=== PATIENT | female | born 1990 | race Caucasian/White ===

== ENCOUNTER 2018-11-23 05:28 | Inpatient (IN) | payer OTHER ==
[2018-11-23 06:09] LABS: APPEARANCE,URINE CLOUDY; BILIRUBIN,URINE NEGATIVE (NEGATIVE); COLOR,URINE YELLOW; GLUCOSE, URINE NEGATIVE (NEGATIVE); KETONES,URINE NEGATIVE (NEGATIVE); LEUKOCYTE ESTERASE,URINE MODERATE (NEGATIVE); NITRITE,URINE NEGATIVE (NEGATIVE); PROTEIN,URINE NEGATIVE (NEGATIVE); URINE SPECIFIC GRAVITY 1.025; UROBILINOGEN,URINE NEGATIVE mg/dL (<2.0)
--- NOTE | 2018-11-23 06:18 | Non Stress Test Report ---
Non Stress Test Datetime Report Generated by CPN: 11/23/2018 06:18 DEMOGRAPHIC Test Number: 1 EGA NST: 40.2 INDICATION Indication for Study: Ordered by Provider URINE RESULTS Urine Protein, NST: Negative Urine Ketones - NST: Negative Urine Glucose - NST: Negative Urine Blood - NST: Negative MONITORING Monitor Explained: Monitor Explained; Test Explained; Patient Verbalized Understanding Time on Monitor: 11/23/2018 05:44 Time off Monitor: 11/23/2018 06:13 NST Duration: 29 NST INTERVENTIONS NST Interventions: PO Hydration; Reposition Patient Physician Notified NST: Dr. Solomon BABY A: [id number] BABY A Movement : Present Contraction Frequency : 4-5 FHR Baseline : 145 Accelerations : 15X15 Decelerations : None Variability : Moderate 6-25bpm NST Review: Meets Criteria for Reactive NST NST Review and Verified By : GALLO Thorne NST Results: Reactive NST REPORT Report Trigger: Send Report
[2018-11-23 06:27] LABS: URINE AMPHETAMINES SCREEN NEGATIVE; URINE BARBITURATES SCREEN NEGATIVE; URINE BENZODIAZEPINES SCREEN NEGATIVE; URINE COCAINE SCREEN NEGATIVE; URINE MARIJUANA (THC) SCREEN NEGATIVE; URINE METHADONE SCREEN NEGATIVE; URINE PHENCYCLIDINE SCREEN NEGATIVE
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
[2018-11-23] MEDS ORDERED: OXYTOCIN/NORMAL SALINE 20 UNIT/1,000 ML RTUINJ IV PRN ×2 (07:33→16:23)
[2018-11-23] MEDS ORDERED: RINGERS SOLUTION,LACTATED 300 ML IV ONE (07:33)
[2018-11-23] MEDS ORDERED: DINOPROSTONE 10 MG VAGINAL INSERT.SR PV PRN (07:33)
[2018-11-23] MEDS ORDERED: RINGERS SOLUTION,LACTATED 1,000 ML IV PRN ×2 (07:33→16:23)
[2018-11-23] MEDS: RINGERS SOLUTION,LACTATED 1,000 ML IV PRN ×2 (08:15→21:30)
[2018-11-23] MEDS ORDERED: MISOPROSTOL 0.2 MG TABLET ONE (08:21)
[2018-11-23] MEDS ORDERED: OXYTOCIN/NORMAL SALINE 20 UNIT/1,000 ML RTUINJ ONE ×2 (08:21→15:01)
[2018-11-23] MEDS ORDERED: LIDOCAINE 1% INJ-PF (10 MG/ML) 30 ML SDV ONE (08:21)
[2018-11-23 08:22] LABS: HEMATOCRIT 34.9 % (36.0-47.0); HEMOGLOBIN 11.9 g/dL (12.0-15.5); MEAN CORPUSCULAR HEMOGLOBIN 30.4 pg (27.0-33.4); MEAN CORPUSCULAR HGB CONC 34.2 g/dL (32.0-36.0); MEAN CORPUSCULAR VOLUME 89 fl (80-97); PLATELET COUNT 296 10^3/uL (150-450); RED BLOOD COUNT 3.93 10^6/uL (3.72-5.28); RED CELL DISTRIBUTION WIDTH 13.8 % (11.5-14.0); WHITE BLOOD COUNT 10.5 10^3/uL (4.0-10.5)
[2018-11-23] MEDS ORDERED: PHENYLEPHRINE HCL INJ/PF 10 MG/1 ML SDV ONE (10:17)
[2018-11-23] MEDS ORDERED: EPHEDRINE SULFATE INJ 50 MG/1 ML AMPULE ONE (10:18)
[2018-11-23] MEDS ORDERED: FENTANYL/BUPIVACAINE/NS/PF 300 MCG/150 ML RTUINJ EPI ONE (10:18)
[2018-11-23] MEDS ORDERED: FENTANYL CITRATE INJ/PF 100 MCG/2 ML AMPUL ONE ×2 (10:18→15:01)
[2018-11-23] MEDS ORDERED: BUPIVACAINE HCL 0.25 % INJ/PF (2.5 MG/1 ML) 30 ML VIAL ONE (10:19)
[2018-11-23] MEDS ORDERED: LIDOCAINE 1.5%/EPINEPHRINE INJ-PF 30 ML SDV ONE (10:20)
[2018-11-23] MEDS ORDERED: CLINDAMYCIN 900 MG/D5W RTU 900 MG/50 ML RTUPB IV ONE (14:57)
[2018-11-23] MEDS ORDERED: CITRIC ACID/SODIUM CITRATE ORAL SOLN 15 ML UDCUP ONE (14:58)
--- NOTE | 2018-11-23 14:59 | L&D Progress Notes ---
PROGRESS NOTES Datetime Report Generated by CPN: 11/23/2018 14:59 PROGRESS NOTE Impression: Non-reassuring Heart Rate Plan: Deliver- Section Informed Consent Obtained: Section Delivery Vital Signs : Reviewed Comment: Pt having repetitive variable and late decels. Pit off, O2 on, fluid bolus given and numerous position changes employed without resolution. Have been monitoring closely for approx 20 min. Pt is nulliparous and is 7 cm. Decision to go to the OR for an Urgent LTCS has been made. Pt is agreeable to this plan. VAGINAL EXAM Dilatation: 4 Effacement: 80 Station: -1 LAST VAGINAL EXAM-NURSING Dilitation: 7.0 Dilitation: 6.0 Dilitation: 6.0 Dilitation: 3.5 Dilitation: 2.5 Effacement: 90 Effacement: 90 Effacement: 90 Effacement: 80 Effacement: 50 Station: -2 Station: -1 Station: -1 Station: -1 Station: -2 Contractions: IAIN APPLIED MEMBRANES Pooling: Negative Membranes: Intact FETUS A FHR - Baseline: 150s Monitoring: Internal Scalp Electrode Variability: Moderate 6-25bpm Accelerations: 10X10 Decelerations: Late; Variable; Prolonged FHR Category: Category II : 40.2 : 40.2 Estimated Weight (gm): 3500 Presentation: Vertex SIGNATURE SIGNATURE: [id number];[id number];[id number] SIGNATURE: [id number];14,[id number] SIGNATURE: [id number] Signature: with User ID: [email or web address]
[2018-11-23] MEDS ORDERED: ONDANSETRON HCL INJ/PF 4 MG/2 ML SDV ONE (15:01)
[2018-11-23] MEDS ORDERED: OXYTOCIN 10 UNIT/ML VIAL ONE (15:01)
[2018-11-23] MEDS ORDERED: MIDAZOLAM 2 MG/2 ML INJ ONE (15:01)
[2018-11-23] MEDS ORDERED: BUPIVACAINE HCL/DEX-WATER/PF 15 MG/2 ML AMPULE ONE (15:08)
--- NOTE | 2018-11-23 16:16 | PDOC DELIVERY SUMMARY ---
Delivery Summary - Maternal Number of Living Children: 0 ALAN: 11/21/18 Gestational Age: 40.2 Ruptured Membranes: AROM Fluids: Clear - Delivery Labor: Augmentation Presentation: Vertex Uterine Contraction Monitoring: Internal Pattern: Late Decels, Prolonged Decels Support Person Present: Yes Location: OR : Emergency Placenta: Within Normal Limits Placenta Description: Normal-appearing Number of Vessels (Cord): 3 Nuchal Cord: No Delivery of Placenta Date: 11/23/18 Estimated Blood Loss: 500 ml - Medications Type of Anesthesia:: Spinal - Delivery Personnel MD: WALLY CANO
[2018-11-23] MEDS ORDERED: DIPH/PERTUSS(ACELL)/TETANUS VAC/PF 0.5 ML SYR (>=10YO) IM PRN (16:23)
[2018-11-23] MEDS ORDERED: HYDROMORPHONE HCL INJ/PF 2 MG/ML AMPULE IV PRN (16:23)
[2018-11-23] MEDS ORDERED: PROMETHAZINE HCL INJ 25 MG/1 ML VIAL IV PRN (16:23)
[2018-11-23] MEDS ORDERED: OXYCODONE-ACETAMINOPHEN 5-325 MG TABLET PO PRN (16:23)
[2018-11-23] MEDS ORDERED: SIMETHICONE 80 MG TAB.CHEW PO PRN (16:23)
[2018-11-23] MEDS ORDERED: ACETAMINOPHEN 325 MG TABLET PO PRN (16:23)
--- NOTE | 2018-11-23 16:23 | Operative Report ---
Operative Report DATE OF SURGERY: 11/23/18 PREOPERATIVE DIAGNOSIS: 1. Intrauterine at 40-2/7 weeks. 2. Catego ry 2-3 heart tones. 3. GBS negative. 4. Rh+. 5. Rubella immune POSTOPERATIVE DIAGNOSIS: Same OPERATION: Urgent primary low transverse section SURGEON: WALLY TAYLOR ANESTHESIA: Spinal TISSUE REMOVED OR ALTERED: Placenta COMPLICATIONS: None ESTIMATED BLOOD LOSS: 500 ml INTRAOPERATIVE FINDINGS: Male fetus in a cephalic position; Apgars 7 at 1, 8 at 5; Normal uterus, bilateral tubes and ovaries PROCEDURE: The patient was taken to the operating room where spinal anesthesia was obtained and found to be adequate. She was then prepped and draped in the normal sterile fashion and placed in the dorsal supine position with a leftward tilt. A Pfannenstiel skin incision was then made and carried through to the underlying layers of the fascia with the scalpel. The fascia was incised in the midline and the incision extended laterally with the Mandel scissors. The superior aspect of the fascial incision was then grasped with Alia clamps jennifer vated and the underlying rectus muscles dissected off both bluntly and sharply. Attention was then turned to the inferior aspect of the fascial incision which in a similar fashion was grasped, tented up with Alia clamps, and the rectus muscles dissected off both bluntly and sharply. The rectus muscles were then in the midline and the peritoneum was identified and entered both sharply and bluntly. The peritoneal incision was then extended superiorly and inferiorly with good visualization of the bladder. The bladder blade was inserted and the vesicouterine peritoneum identified grasped with Austrian pickups and entered sharply with the Metzenbaum scissors. This incision was then extended laterally with the Metzenbaum scissors and a bladder flap created digitally. The bladder blade was then reinserted and the lower uterine segment incised in a transverse fashion with the scalpel. The uterine incision was then extended bluntly and with the bandage scissors. The bladder blade was removed and the infant's head was delivered from cephalic presentation atraumatically. The cord doubly clamped and cut. The infant was handed off to waiting pediatricians. The placenta was then delivered manually and the uterus exteriorized and cleared of all clots and debris. The uterine incision was then repaired with 0 Vicryl in a running locked fashion. 0-Chromic was used to obtain hemostasis via imbrication of the initial layer. The bladder flap was then repaired with 3-0 Vicryl in a running fashion. The uterus was returned to the patient's abdomen and Interceed was placed overlying the uterine incision, as well as a piece placed vertically on the anterior surface of the uterus, to prevent adhesions. The gutters were cleared of all clots and debris. All operative sites were noted to be hemostatic. The fascia was reapproximated with 0 Vicryl in a running fashion from each lateral edge to the midline. The subcutaneous fat layer was then closed in an interrupted fashion with 3-0 vicryl. The skin was closed with 4-0 Monocryl in a running, subcuticular fashion. The patient tolerated the procedure well. Sponge, lap, needle and instrument counts are correct x 2. 900 mg of clindamycin was given prior to skin incision. The patient was taken to the recovery area awake and in stable condition.
[2018-11-23] MEDS ORDERED: KETOROLAC TROMETHAMINE INJ/PF 30 MG/1 ML SDV ONE (17:00)
[2018-11-23] MEDS ORDERED: NALBUPHINE HCL INJ 10 MG/1 ML AMPULE ONE (17:00)
[2018-11-23] MEDS: OXYCODONE-ACETAMINOPHEN 5-325 MG TABLET PO PRN (21:27)
[2018-11-23] MEDS: DOCUSATE SODIUM 100 MG CAPSULE PO SCH (21:28)
[2018-11-23] MEDS: IBUPROFEN 800 MG TABLET PO SCH (21:28)
[2018-11-23] MEDS: KETOROLAC TROMETHAMINE INJ/PF 30 MG/1 ML SDV IV SCH (22:23)
[2018-11-24] MEDS: IBUPROFEN 800 MG TABLET PO SCH ×4 (00:40→18:02)
[2018-11-24] MEDS: OXYCODONE-ACETAMINOPHEN 5-325 MG TABLET PO PRN ×4 (04:56→21:52)
[2018-11-24] MEDS: KETOROLAC TROMETHAMINE INJ/PF 30 MG/1 ML SDV IV SCH (05:03)
[2018-11-24 06:16] LABS: HEMATOCRIT 28.8 % (36.0-47.0); HEMOGLOBIN 10.1 g/dL (12.0-15.5); MEAN CORPUSCULAR HEMOGLOBIN 31.2 pg (27.0-33.4); MEAN CORPUSCULAR VOLUME 89 fl (80-97); PLATELET COUNT 214 10^3/uL (150-450); RED BLOOD COUNT 3.23 10^6/uL (3.72-5.28); RED CELL DISTRIBUTION WIDTH 13.9 % (11.5-14.0); WHITE BLOOD COUNT 9.7 10^3/uL (4.0-10.5)
--- NOTE | 2018-11-24 09:47 | PDOC PROGRESS REPORT ---
Subjective-OB Progress Note for:: 11/24/18 Subjective: Pt doing well. No concerns. Reports light bleeding, reg diet and voiding well. No flatus yet. Physical Exam (OB) Vital Signs: Temp Pulse Resp BP Pulse Ox 98.6 F 95 16 129/54 H 98 11/24/18 07:34 11/24/18 07:34 11/24/18 07:34 11/24/18 07:34 11/24/18 07:34 Intake & Output 11/23/18 11/24/18 11/25/18 06:59 06:59 06:59 Intake Total 3900 Output Total 3100 Balance 800 Weight 82 kg - Dressing Removed: No - CD&I - Lochia Lochia Amount: Scant < 10 ml Lochia Color: Rubra/Red - Abdomen Description: Soft, Round Hernia Present: No Fundal Description: Firm, Midline Fundal Height: u/u - u/2 Objective-Diagnostic Laboratory: 11/24/18 05:56 11/24/18 11/24/18 05:56 05:56 WBC 9.7 RBC 3.23 L Hgb 10.1 L Hct 28.8 L MCV 89 MCH 31.2 MCHC 35.0 RDW 13.9 Plt Count 214 Blood Type Cancelled Assessment and Plan(PN) - Assessment and Plan (1) delivery delivered Is this a current diagnosis for this admission?: Yes (2) Non-reassuring status, delivered, current hospitalization Is this a current diagnosis for this admission?: Yes (3) Spontaneous onset of labor Is this a current diagnosis for this admission?: Yes - Time Spent with Patient Time with patient: Less than 15 minutes Medications reviewed and adjusted accordingly: Yes - Disposition Anticipated Discharge: Home Within: within 24 hours
[2018-11-24] MEDS: PRENATAL VITAMIN W DHA CAPSULE PO SCH (10:59)
[2018-11-24] MEDS: DOCUSATE SODIUM 100 MG CAPSULE PO SCH ×2 (10:59→18:02)
[2018-11-25] MEDS: IBUPROFEN 800 MG TABLET PO SCH ×3 (00:59→12:38)
[2018-11-25] MEDS: OXYCODONE-ACETAMINOPHEN 5-325 MG TABLET PO PRN (08:58)
[2018-11-25] MEDS: DOCUSATE SODIUM 100 MG CAPSULE PO SCH (09:01)
[2018-11-25] MEDS: PRENATAL VITAMIN W DHA CAPSULE PO SCH (09:02)
--- NOTE | 2018-11-25 09:40 | PDOC PROGRESS REPORT ---
Subjective-OB Progress Note for:: 11/25/18 Subjective: Ready for discharge. Physical Exam (OB) Vital Signs: Temp Pulse Resp BP Pulse Ox 98.2 F 91 20 125/79 98 11/25/18 07:47 11/25/18 07:47 11/25/18 07:47 11/25/18 07:47 11/25/18 07:47 Intake & Output 11/24/18 11/25/18 11/26/18 06:59 06:59 06:59 Intake Total 3900 500 Output Total 3100 Balance 800 500 - PIH/Pre-Eclampsia Headache: Absent Epigastric Pain: No Visual Changes: No - Dressing Removed: No - opsite Incision: Dressing - Lochia Lochia Amount: Small 10-25 ml Lochia Color: Rubra/Red - Abdomen Description: Soft, Round Hernia Present: No Bowel Sounds: Normoactive Flatus Presence: Present Stool: No Fundal Description: Firm, Midline Fundal Height: u/u - u/2 Objective-Diagnostic Laboratory: 11/24/18 05:56 Assessment and Plan(PN) - Time Spent with Patient Medications reviewed and adjusted accordingly: Yes - Disposition Anticipated Discharge: Home
--- NOTE | 2018-11-25 09:50 | PDOC DISCHARGE SUMMARY ---
Final Diagnosis Discharge Date: 11/25/18 Discharge Data - Discharge Medication Prescriptions: Oxycodone HCl/Acetaminophen [Percocet 5-325 mg Tablet] 1 tab PO Q4HP PRN #20 tablet PRN Reason: Docusate Sodium [Colace 100 mg Capsule] 100 mg PO BID #30 capsule Ferrous Sulfate 325 mg PO DAILY #30 tablet. Ibuprofen [Motrin 800 mg Tablet] 800 mg PO Q6 #30 tablet Home Medications: Prenat 115/Iron Fum/Folic/Dss [ 19 Tablet] 1 tab PO DAILY 11/23/18 Docusate Sodium [Colace 100 mg Capsule] 100 mg PO BID #30 capsule 11/25/18 Ferrous Sulfate 325 mg PO DAILY #30 tablet. 11/25/18 Ibuprofen [Motrin 800 mg Tablet] 800 mg PO Q6 #30 tablet 11/25/18 Oxycodone HCl/Acetaminophen [Percocet 5-325 mg Tablet] 1 tab PO Q4HP PRN #20 tablet 11/25/18 Gestational Age: 40.2 wks Reason(s) for Admission: Onset of Labor Procedures: Ultrasound Intrapartum Procedure(s): : Low Cervical, Transverse - Data Baby 1 Female at 1 minute: 7 at 5 minutes: 8 Weight: 3.232 kg Home with Mother: Yes Complications: No - Diagnosis Test Laboratory: Temp Pulse Resp BP Pulse Ox 98.2 F 91 20 125/79 98 11/25/18 07:47 11/25/18 07:47 11/25/18 07:47 11/25/18 07:47 11/25/18 07:47 11/23/18 11/23/18 11/24/18 05:40 07:59 05:56 RBC 3.93 3.23 L Hgb 11.9 L 10.1 L Hct 34.9 L 28.8 L Urine Opiates Screen NEGATIVE - Discharge information/Instructions Discharge Activity: Activity As Tolerated, Balance Activity w/Rest, No Lifting Over 10 Pounds, No Lifting/Push/Pulling, Non-Ambulatory Child, Pelvic Rest, Slowly Increase Activity, No tub bath Discharge Diet: Regular Disposition: HOME, SELF-CARE Follow up with: [facility] in: 1, Weeks
[2018-11-25] MEDS ORDERED: MEASLES,MUMPS&RUBELLA VACC/PF 0.5 ML VIAL SUBCUT PRN (12:45)
[2018-11-25 13:00] VITALS: BP 109/66
[2018-11-25] MEDS ORDERED: ONDANSETRON HCL INJ/PF 4 MG/2 ML SDV ONE (15:11)
--- NOTE | 2018-11-29 02:41 | Delivery Summary ---
Del Sum A-C Datetime Report Generated by CPN: 11/29/2018 02:41 DELIVERY PERSONNEL DELIVERY PERSONNEL: [id number] Delivery Doctor:: Skyla Ordaz MD Anesthesiologist:: Dania Dempsey MD BRICK CATCHER:: Venkata Arevalo CRNA Labor and Delivery Nurse:: Corie De Jesus RN Labor and Delivery Nurse:: Collins Gaytan RN Branch Chief:: Corie De Jesus RN Superintendent Overhead Distribution:: Dr. Moshe Bhatt Nursery Nurse:: Ana Laura Cheek RN Student Observers:: Clif MIN RN Supervisor Cell Efficiency/DIRECTOR OPERATIONS: ST Sunita Supervisor Cell Efficiency/DIRECTOR OPERATIONS: Zonia Rojas, DRYWALL WORKER MATERNAL INFORMATION Delivery Anesthesia: Epidural; Spinal Medications After Delivery: Pitocin Bolus-Please Comment; Pitocin Drip 20 Units/1000ml NSS Meds After Delivery Comment: Pitocin 20 units in 1 L NS bolusing per order Maternal Complications: None LABOR SUMMARY EDC: 11/21/2018 00:00 No. Babies in Womb: 1 (Annotations: Data stored by CPN on behalf of user) Attempted: No Labor Anesthesia: Epidural (Annotations: Data stored by CPN on behalf of user) LABOR INFORMATION Reason for Induction: Not Applicable Onset of Labor: 11/23/2018 01:00 Oxytocin: Augmentation Group B Beta Strep: Negative Antibiotics # of Doses: 0 Antibiotics Time of Last Dose: n/a Name of Antibiotic Given: n/a Steroids Given: None Reason Steroids Not Administered: Not Applicable MEMBRANES Membranes Rupture Method: Artificial Rupture of Membranes: 11/23/2018 12:32 Length of Rupture (hr): 3.02 Amniotic Fluid Color: Clear Amniotic Fluid Amount: Small Amniotic Fluid Odor: Normal STAGES OF LABOR Stage 3 hr: 0 Stage 3 min: 1 Total Time in Labor hr: 14 Total Time in Labor min: 34 VAGINAL DELIVERY Sponge Count Correct: N/A Sharps Count Correct: N/A BABY A INFORMATION Delivery Date/Time: 11/23/2018 15:33 Method of Delivery: Born in Route : No : N/A Forceps: N/A Vacuum Extraction: N/A Shoulder Dystocia : No PRESENTATION/POSITION BABY A Presentation: Cephalic Cephalic Presentation: Vertex Breech Presentation: N/A PLACENTA INFORMATION BABY A Placenta Delivery Time : 11/23/2018 15:34 Placenta Method of Delivery: Manual Removal Placenta Status: Delivered SCORES BABY A Heart Rate 1 min: >100 bpm Resp Effort 1 min: Good Cry Reflex Irritability 1 min: Cough or Sneeze or Pulls Away Muscle Tone 1 min: Some Flexion of Extremities Color 1 min: Blue/Pale Resuscitation Effort 1 min: Tactile Stimulation SCORE 1 MIN: 7 Heart Rate 5 min: >100 bpm Resp Effort 5 min: Good Cry Reflex Irritability 5 min: Cough or Sneeze or Pulls Away Muscle Tone 5 min: Some Flexion of Extremities Color 5 min: Body [place], Extremities Blue Resuscitation Effort 5 min: Tactile Stimulation SCORE 5 MIN: 8 INFORMATION BABY A Gestational Age at Delivery: 40.2 Gestational Status: Full Term- 39- 40.6 Weeks Outcome : Liveborn Condition : Stable Sex: Female IDENTIFICATION BABY A Infant Verification Date/Time: 11/23/2018 15:37 ID Band Number: [id number] Mother's Name Verified: Yes Infant RN Verifying Infant: NELDA DE JESUS RN Additional Verifying Personnel: Clif MIN, RN WEIGHT/LENGTH BABY A Infant Birthweight (gm): 3230 Infant Weight (lb): 7 Infant Weight (oz): 2 Length (in): 19.00 Length (cm): 48.26 CORD INFORMATION BABY A No. Cord Vessels: 3 Nuchal Cord : N/A Cord Blood Taken: N/A ASSESSMENT BABY A Complications: Multiple Late Decels; Multiple Variable Decels Physical Findings at Delivery: Within Normal Limits Respirations: Appears Normal Skin to Skin: No Superintendent Overhead Distribution/ALS Called : Yes Care By: dr bhatt/ brooke cheek rn Transferred To: [facility] BABY B INFORMATION : N/A
== END 2018-11-25 15:34 | disposition home or self-care (01) | DRG 788 ==
LOC: LC 05:28 → LR 07:39 → 2S 18:00
PROVIDERS: ADMIT Obstetrics & Gynecology; ATTEND Obstetrics & Gynecology
PROC: 10D00Z1 Extraction of Products of Conception, Low, Open Approach (ICD-10-PCS; principal; 2018-11-23)
PROC: 4A1H7CZ Monitoring of Products of Conception, Cardiac Rate, Via Natural or Artificial Opening (ICD-10-PCS; 2018-11-23)
PROC: 10H073Z Insertion of Monitoring Electrode into Products of Conception, Via Natural or Artificial Opening (ICD-10-PCS; 2018-11-23)
PROC: 4A1HXCZ Monitoring of Products of Conception, Cardiac Rate, External Approach (ICD-10-PCS; 2018-11-23)
DX: O76 Abnormality in fetal heart rate and rhythm complicating labor and delivery (principal); Z3A.40 40 weeks gestation of pregnancy; Z37.0 Single live birth; Z88.6 Allergy status to analgesic agent; Z88.1 Allergy status to other antibiotic agents; Z87.891 Personal history of nicotine dependence
CPT/HCPCS: 1961; 36415; 59025; 80307; 81005; 85027; 86592; 86850; 86900; 86901; 88307; 90707; 94799; J1885; J2250; J2300; J2370; J2405; J2590; J3010; J3490; J7120